=== PATIENT | female | born 2000 | race Caucasian/White ===

== ENCOUNTER 2024-09-06 09:55 | Emergency (ER) | payer SELFPAY ==
[2024-09-06 09:59] VITALS: BP 119/72
[2024-09-06 11:38] VITALS: BP 134/84
--- NOTE | 2024-09-06 11:41 | ED.GENMED ---
History of Present Illness
General
Chief Complaint: Headache
Source: patient
Exam Limitations: none
Time Seen by Provider: 09/06/24 11:15
Nursing documentation reviewed up to this point in time: agreed with
History of Present Illness
History of Present Illness:
Patient is a 24-year-old female who presents to the ER complaining of left-sided headache and left-sided neck pain. Patient reports on Thursday, 2 days ago she woke up and felt pain in the left side of her head. She reports since then she has had a
steady persistent left-sided head pressure however she has had waves of very sharp pain to the left side of her head that last for seconds at a time. She does feel soreness in the left lateral neck. She denies any associated vision change, nausea
or vomiting. She denies any vertigo or room spinning sensation. She denies any injury. Denies any recent chiropractor manipulation. She has taken ibuprofen and Tylenol without relief. She denies any recent illness, fever or chills.
Review of Systems
Review of Systems
Allergies reviewed?: Yes
All Other Systems: ROS reviewed and negative except as documented in HPI and ROS
Constitutional: Reports no symptoms; Denies fever, fatigue or chills
EENT: Reports no symptoms
ABD/GI: Reports no symptoms; Denies nausea, vomiting or diarrhea
Musculoskeletal: Reports neck pain (left neck pain )
Skin: Reports no symptoms
Neurological: Reports dizzy, headache and other (felt lightheaded )
Psychiatric: Reports no symptoms
Phy Exam
General Physical Exam
General Presentation: no apparent distress
General Skin: warm and dry
General Habitus: normal
General Mental: alert
General Hydration: appears well hydrated
ENT Exam
ENT Exam: EOMI and neck supple
Eye Exam
Eye Exam: PERRL and EOMI
Eye Exam General: PERRL: bilateral and EOM intact: bilateral
Pupil Exam: Bilateral: round and reactive
Neurological Exam
Neurological Exam: alert, oriented x3, no motor deficits and no sensory deficits
Srinath Coma Scale
Eye Opening: Spontaneous
Verbal Response: Oriented
Motor Response: Obeys Commands
GCS Total Score: 15
Cerebellar
Cerebellar Function: normal finger to nose
Musculoskeletal Exam
Musculoskeletal Exam: other (full ROM to neck; nontender )
Skin Exam
Skin Exam: normal color and warm/dry
Psychiatric Exam
Psychiatric Exam: normal mood/affect
Course
Orders/Labs/Results
Orders:
Orders
09/06/24 11:49
CT Head W/o Iv Contrast Urgent
Comment:
Reason For Exam: left sided headache
Vital Signs
Initial and Last Documented VS:
Initial Vital Signs
Temp Pulse Resp BP Pulse Ox
98.7 F 79 18 119/72 100
09/06/24 09:59 09/06/24 09:59 09/06/24 09:59 09/06/24 09:59 09/06/24 09:59
Last Documented Vital Signs
Temp Pulse Resp BP Pulse Ox
98.7 F 79 18 134/84 100
09/06/24 09:59 09/06/24 09:59 09/06/24 09:59 09/06/24 11:38 09/06/24 09:59
MDM/Problems Addressed
MDM/Problems Addressed:
12:33: I was informed by nurse and ED staff that patient walked out of the ER. She left prior to her CAT scan and left prior to workup was complete
*Critical Care Note
Total Time (30-74mins, 75-104mins- exclusive of procedures): Not Applicable
ED Attending Note
-
Portions of this chart may have been created with voice recognition software.� Occasional wrong word or��sound alike� substitutions may have occurred due to the inherent limitations of voice recognition software.
Discharge Plan
Departure
Patient Disposition: Elopement
Date of Disposition: 09/06/24
Time of Disposition: 12:38
Interventions
Interventions:
*Risk Screen - Suicide Last Done: 09/06/24 09:59
*General Assessment Last Done: 09/06/24 09:59
*ED COVID-19 Vaccine History Last Done: 09/06/24 09:59
*Nursing Disposition Last Done: 09/06/24 12:32
ED- Neurological Assessment Last Done: 09/06/24 11:38
Discharge Date and Time
Discharge Date/Time: 09/06/24 12:33
Print Language: SYRIAC
== END 2024-09-06 12:33 | disposition left against medical advice (07) ==
LOC: EMR 09:55
PROVIDERS: EMERGENCY PHYSICIAN Student in an Organized Health Care Education/Training Program
DX: R51.9 Headache, unspecified (principal); M54.2 Cervicalgia; R42 Dizziness and giddiness; Z53.29 Procedure and treatment not carried out because of patient's decision for other reasons
CPT/HCPCS: 99281